=== PATIENT | male | born 1990 | race Caucasian/White ===

== ENCOUNTER 2019-05-13 12:09 | Emergency (ER) | payer OTHER ==
[~2019-05-13] VITALS: Ht 180.3 cm; Wt 73.5 kg
[2019-05-13] MEDS ORDERED: KETO10TA2 PO (15:10)
== END 2019-05-13 15:27 | disposition home or self-care (01) ==
LOC: ER 12:09
DX: R07.89 Other chest pain (principal); M94.0 Chondrocostal junction syndrome [Tietze]

== ENCOUNTER 2021-04-26 19:10 | Emergency (ER) | payer OTHER ==
[~2021-04-26] VITALS: Ht 180.3 cm; Wt 79.4 kg
[~2021-04-26 19:10] MED LIST: KETO10TA2 PO
[2021-04-26] MEDS ORDERED: TYLENOL (19:41)
== END 2021-04-26 22:54 | disposition home or self-care (01) ==
LOC: ER 19:10
DX: J06.9 Acute upper respiratory infection, unspecified (principal); J02.9 Acute pharyngitis, unspecified; Z03.818 Encounter for observation for suspected exposure to other biological agents ruled out